=== PATIENT | female | born 1960 | race Caucasian/White ===

== ENCOUNTER 2022-11-19 11:38 | Emergency (ER) | payer OTHER ==
[~2022-11-19] VITALS: Ht 165.1 cm; Wt 86.2 kg
[2022-11-19 11:48] VITALS: BP 107/88
[2022-11-19 12:22] LABS: APPEARANCE,URINE CLOUDY (CLEAR); BILIRUBIN,URINE NEGATIVE (NEGATIVE); COLOR,URINE YELLOW (YELLOW); GLUCOSE, URINE (UA) NEGATIVE (NEGATIVE); KETONES,URINE 5 mg/dL (NEGATIVE); LEUKOCYTE ESTERASE ,URINE 25 Leu/uL (NEGATIVE); NITRATE,URINE NEGATIVE (NEGATIVE); OCCULT BLOOD,URINE NEGATIVE (NEGATIVE); PH,URINE 5.5 (5.0-8.0); PROTEIN,URINE 50 mg/dL (NEGATIVE); UROBILINOGEN,URINE 0.2 mg/dL (0.2-1.0)
[2022-11-19 12:36] LABS: BACTERIA,URINE FEW /HPF (None Seen); MUCUS,URINE RARE LPF (None Seen); OTHER CASTS, URINE 1 /LPF (None Seen); SQUAMOUS EPITHELIAL CELL,UR MANY /HPF (0-2)
[2022-11-19] MEDS ORDERED: SULF1TAB42 PO (12:40)
[2022-11-19] MEDS ORDERED: PHEN-847 PO (12:40)
== END 2022-11-19 12:54 | disposition home or self-care (01) ==
LOC: EDH 11:38
DX: N39.0 Urinary tract infection, site not specified (principal); Z90.49 Acquired absence of other specified parts of digestive tract; Z79.899 Other long term (current) drug therapy
CPT/HCPCS: 81001